=== PATIENT | male | born 2000 | race African-American/Black ===

== ENCOUNTER 2021-03-14 10:24 | Emergency (ER) | payer OTHER ==
[~2021-03-14] VITALS: Ht 170.2 cm; Wt 90.4 kg
[2021-03-14 10:25] VITALS: BP 143/93
[2021-03-14] MEDS ORDERED: CLAR10CA3 PO (12:08)
[2021-03-14] MEDS ORDERED: HYDR25OIN TOP (12:08)
== END 2021-03-14 12:33 | disposition home or self-care (01) ==
LOC: M ED 10:24
DX: S00.261A Insect bite (nonvenomous) of right eyelid and periocular area, initial encounter (principal); H02.841 Edema of right upper eyelid; W57.XXXA Bitten or stung by nonvenomous insect and other nonvenomous arthropods, initial encounter; Y92.9 Unspecified place or not applicable; Y93.9 Activity, unspecified; Y99.9 Unspecified external cause status

== ENCOUNTER 2023-02-14 10:22 | Emergency (ER) | payer OTHER ==
[~2023-02-14] VITALS: Ht 172.7 cm; Wt 96.8 kg
[2023-02-14 10:22] VITALS: BP 141/78
[~2023-02-14 10:22] MED LIST: CLAR10CA3 PO; HYDR25OIN TOP
[2023-02-14] MEDS ORDERED: TETRACAINE 0.5% OPHTH SOLN 4ML OS ONE (11:50)
[2023-02-14] MEDS ORDERED: FLUORESCEIN OPHTH 1MG STRIP OS ONE (11:50)
== END 2023-02-14 12:50 | disposition home or self-care (01) ==
LOC: M ED 10:22
DX: S05.12XA Contusion of eyeball and orbital tissues, left eye, initial encounter (principal); Y04.2XXA Assault by strike against or bumped into by another person, initial encounter; F17.200 Nicotine dependence, unspecified, uncomplicated; F10.10 Alcohol abuse, uncomplicated; Z79.899 Other long term (current) drug therapy

== ENCOUNTER 2023-06-09 16:59 | Emergency (ER) | payer OTHER ==
[~2023-06-09] VITALS: Ht 172.7 cm; Wt 94.5 kg
[2023-06-09] MEDS ORDERED: LIDOCAINE 1% MDV 20ML VIAL SC ONE (18:40)
[2023-06-09] MEDS ORDERED: NEOSPORIN OINT 0.9 GM PKT TOP ONE (18:45)
[2023-06-09 19:44] VITALS: BP 130/72; TEMP 99.1; O2SAT 100
== END 2023-06-09 19:32 | disposition home or self-care (01) ==
LOC: M ED 16:59
DX: S61.201A Unspecified open wound of left index finger without damage to nail, initial encounter (principal); W26.0XXA Contact with knife, initial encounter; F10.10 Alcohol abuse, uncomplicated; Y92.009 Unspecified place in unspecified non-institutional (private) residence as the place of occurrence of the external cause